=== PATIENT | male | born 1935 | race Caucasian/White ===

== ENCOUNTER 2017-06-29 11:24 | Emergency (ER) | payer MEDICARE ==
[2017-06-29 11:35] VITALS: BP 180/100; PULSE 83; O2SAT 98
[2017-06-29] MEDS ORDERED: Adacel Vial IM ONE ×2 (11:44→12:49)
--- NOTE | 2017-06-29 12:06 | XRAY ---
Indication: Left forehead laceration following fall. Multiple contiguous axial images obtained through the head without contrast. Comparison: January 22, 2011. Minimal left forehead scalp soft tissue swelling. 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 No acute intracranial hemorrhage, abnormal extra-axial fluid collection, or mass effect. Fourth ventricle is midline without hydrocephalus. Bony calvarium intact. Visualized paranasal sinuses and mastoid air cells are clear. Impression: Left forehead soft tissue swelling. 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 CT DI 50.53
--- NOTE | 2017-06-29 12:15 | XRAY ---
Indication: Great toe pain following fall. Comparison: None 3 nonweightbearing views of the right foot demonstrates tiny heel spurs and small talonavicular accessory ossicle. No other bony, articular, or soft tissue abnormalities.
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
== END 2017-06-29 12:54 | disposition home or self-care (01) ==
LOC: ED 11:24
DX: S00.83XA Contusion of other part of head, initial encounter (principal); S90.111A Contusion of right great toe without damage to nail, initial encounter; W06.XXXA Fall from bed, initial encounter; Z79.01 Long term (current) use of anticoagulants; Z79.82 Long term (current) use of aspirin; Z79.899 Other long term (current) drug therapy; S00.81XA Abrasion of other part of head, initial encounter
CPT/HCPCS: 70450; 73630; 90471; 90715; 99284

== ENCOUNTER 2020-01-14 14:27 | Emergency (ER) | payer MEDICARE ==
--- NOTE | 2020-01-14 15:09 | ERPHSYRPT ---
- History of Present Illness Time Seen by Provider: 01/14/20 14:50 Source: patient, family Exam Limitations: no limitations Patient Subjective Stated Complaint: Pt states that according to his blood pressure machine at home that doesn't work right that his blood pressure has been all over the place, states that when he thinks that it is low that he feels a "warmth" go around his head and feels like he is going to pass out but he has not done that yet Triage Nursing Assessment: Pt brought in by his , hypertensive, pulses bounding, denies pain, skin n/w/d, lungs clear, normal heart sounds heard, bowel sounds heard in all 4 quadrants Physician History: Patient comes in due to his blood pressure being high and low over the past month and nonspecific symptoms of dizziness and things appearing to enclosing on him. His highest systolic blood pressure is 185 and its lowest has been 110. Patient was not able to get into his primary care physician in [place], [place], so he came in the emergency room to be evaluated today due to his family member noticing that his blood pressure has been fluctuating. Patient had bilateral carotid endarterectomies, one done in September and one done in October 2019, but has not followed up with his vascular surgeon in the past month when his symptoms have occurred. Timing/Duration: week(s) (four) Severity: moderate Modifying Factors: Improves With: nothing Associated Symptoms: No nausea, No vomiting, No abdominal pain, No shortness of breath, No heartburn, No diaphoresis, No cough, No chills, No chest pain, No fever, No headaches, No loss of appetite, No malaise, No rash, No syncope, No seizure, No weakness Allergies/Adverse Reactions: No Known Drug Allergies Allergy (Verified 01/14/20 14:46) Home Medications: Losartan Potassium 50 mg [Cozaar 50 MG] 25 mg PO BID 10/18/14 [History] Saw [place] 1 tab PO DAILY 10/18/14 [History] Aspirin [Aspir-Low] 81 mg PO DAILY 06/29/17 [History] Atorvastatin Calcium 80 mg PO DAILY 06/29/17 [History] Clopidogrel Bisulfate [Clopidogrel] 75 mg PO DAILY 06/29/17 [History] Isosorbide Mononitrate [Isosorbide Mononitrate ER] 30 mg PO DAILY 06/29/17 [History] Metoprolol Tartrate 12.5 mg PO BID 06/29/17 [History] Magnesium Oxide [Magnesium] 400 mg PO BID 01/14/20 [History] [place]-3 Fatty Acids/Fish Oil [Fish Oil 1,000 mg Capsule] 1,000 mg PO DAILY 01/14/20 [History] Pyridoxine HCl [Vitamin B-6] 100 mg PO DAILY 01/14/20 [History] Hx Tetanus, Diphtheria Vaccination/Date Given: No Hx Influenza Vaccination/Date Given: No Hx Pneumococcal Vaccination/Date Given: No Travel Risk - International Travel Have you traveled outside of the country in past 3 weeks: No - Coronavirus Screening Are you exhibiting any of the following symptoms?: No Close contact with a COVID-19 positive Pt in past 14-21 Days: No - Review of Systems Constitutional: No Fever, No Chills Eyes: No Eye Pain, No Vision Changes Ears, Nose, & Throat: No Nose Congestion, No Mouth Swelling, No Painful Swallowing Respiratory: No Cough, No Dyspnea Cardiac: No Chest Pain, No Edema, No Syncope Abdominal/Gastrointestinal: No Abdominal Pain, No Nausea, No Vomiting, No Diarrhea Genitourinary Symptoms: No Dysuria, No Hematuria, No Flank Pain Musculoskeletal: No Back Pain, No Neck Pain Skin: No Rash, No Skin Lesions Neurological: Dizziness, No Focal Weakness, No Headache, No Sensory Changes Psychological: No Symptoms Endocrine: No Symptoms Hematologic/Lymphatic: No Easy Bleeding, No Easy Bruising All Other Systems: Reviewed and Negative - Past Medical History Pertinent Past Medical History: Yes Cardiac History: High Cholesterol, Hypertension Endocrine Medical History: Diabetes Type II - Past Surgical History Past Surgical History: Yes Gastrointestinal: Hernia Repair Other Surgical History: pt had carotid arteries cleaned out in October 2019 - Social History Smoking Status: Former smoker Exposure to second hand smoke: No Drug Use: none Patient Lives Alone: No - Nursing Vital Signs Nursing Vital Signs: Initial Vital Signs Temperature 98.2 F 01/14/20 14:32 Pulse Rate 77 01/14/20 14:32 Respiratory Rate 11 L 01/14/20 14:32 Blood Pressure 175/81 01/14/20 14:32 O2 Sat by Pulse Oximetry 96 01/14/20 14:32 Pain Scale Pain Intensity 0 - Physical Exam General Appearance: no apparent distress, alert Eye Exam: PERRL/EOMI, eyes nml inspection Ears, Nose, Throat Exam: normal ENT inspection, TMs normal, pharynx normal, moist mucous membranes Neck Exam: normal inspection, non-tender, supple, full range of motion Respiratory Exam: normal breath sounds, lungs clear, No respiratory distress Cardiovascular Exam: regular rate/rhythm, normal heart sounds, normal peripheral pulses Gastrointestinal/Abdomen Exam: soft, normal bowel sounds, No tenderness, No mass Back Exam: normal inspection, No CVA tenderness, No vertebral tenderness, No rash Extremity Exam: normal inspection, normal range of motion, pelvis stable Neurologic Exam: alert, oriented x 3, cooperative, data management engineer II-XII nml as tested, normal mood/affect, nml cerebellar function, nml station & gait, sensation nml, No motor deficits Skin Exam: normal color, warm, dry, No rash Lymphatic Exam: No adenopathy SpO2 Interpretation: normal SpO2: 96 O2 Delivery: Room Air - Course Nursing assessment & vital signs reviewed: Yes EKG Interpreted by Me: RATE (75), Sinus Rhythm, Left [place] Deviation, LAFB, NORMAL INTERVALS, NORMAL QRS, NORMAL ST-T, Other (Left anterior fascicular block; negative previous EKG for comparison) - Radiology Exams Chest X-ray Interpretation: Reviewed by me, Other (Per radiologist interpretation: Portable chest demonstrates interval CABG surgery. Stable bibasilar subsegmental atelectasis/scarring, right hemidiaphragm elevation, and right infrahilar calcified granulomas in comparison to October 18, 2014. Remaining heart and lungs unremarkable. Bony thorax intac) - CT Exams Other CT Interpretation: Other (Per radiologist interpretation of CT angiography of the neck: Bilateral carotid endarterectomy with minimal arteriosclerotic plaquing bilaterally. No critical stenosis/obstruction. Multilevel cervical degenerative changes. Vertebral arteries are bilaterally pain with the left larger in size.) Head CT Interpretation: Negative, Other (Posterior circulation demonstrates dominant distal left vertebral artery, basilar artery normal in course and caliber. Normal CT appearance to posterior cerebral and cerebellar arteries bilaterally. Venous system is unremarkable. No abnormal enhancing intra/extra-axial mass or AV malformation) Ordered Tests: Active Orders 24 hr Category Date Time Status Industrial Chemist STAT Care 01/14/20 15:00 Active Clean Catch Urine Specimen STAT Care 01/14/20 14:59 Active EKG-ER Only STAT Care 01/14/20 14:59 Active IV Insertion STAT Care 01/14/20 14:59 Active Orthostatic Vital Signs STAT Care 01/14/20 14:59 Active CHEST 1 VIEW (PORTABLE) Stat Exams 01/14/20 15:[address] ANGIOGRAPHY NECK [CT] Routine Exams 01/14/20 15:25 Completed CTA HEAD W AND/OR WO CONTRAST [CT] Stat Exams 01/14/20 15:02 Completed CBC W DIFF Stat Lab 01/14/20 14:59 Completed CMP Stat Lab 01/14/20 15:15 Completed ETHYL ALCOHOL Stat Lab 01/14/20 15:15 Completed Lactic Acid Stat Lab 01/14/20 15:14 Completed MAGNESIUM Stat Lab 01/14/20 15:15 Completed NT PRO BNP Stat Lab 01/14/20 15:15 Completed TROPONIN Q3H Lab 01/14/20 15:15 Completed TROPONIN Q3H Lab 01/14/20 18:00 Ordered TROPONIN Q3H Lab 01/14/20 21:00 Ordered TROPONIN Q3H Lab 01/15/20 00:00 Ordered TROPONIN Q3H Lab 01/15/20 03:00 Ordered UA W/RFX UR CULTURE Stat Lab 01/14/20 14:59 Completed Urine Triage Profile Stat Lab 01/14/20 14:59 Completed Medication Summary Discontinued Medications Generic Name Dose Route Start Last Admin Trade Name Freq PRN Reason Stop Dose Admin Sodium Chloride 1,000 mls @ 999 mls/hr 01/14/20 14:59 01/14/20 16:25 Sodium Chloride 0.9% 1000 Ml IV 01/14/20 15:59 Infused .Q1H1M STA Infusion Sodium Chloride Confirm 01/14/20 15:14 Sodium Chloride 0.9% 1000 Ml Administered 01/14/20 15:15 Dose 1,000 mls @ ud .ROUTE .STK-MED ONE Labetalol HCl 20 mg 01/14/20 17:28 01/14/20 17:34 Trandate 20 Mg/5 Ml Syringe IV 01/14/20 17:29 20 mg STAT ONE Administration Labetalol HCl Confirm 01/14/20 17:31 Trandate 100 Mg/20 Ml Mdv For Drip Administered 01/14/20 17:32 Dose 100 mg IV .STK-MED ONE Lab/Rad Data: Laboratory Result Diagrams 01/14/20 14:59 01/14/20 15:15 Laboratory Results 01/14/20 01/14/20 01/14/20 Range/Units 15:15 15:15 15:14 WBC (4.0-10.5) K/mm3 RBC (4.1-5.6) M/mm3 Hgb (12.5-18.0) gm/dl Hct (42-50) % MCV (78-100) fl MCH (26-32) pg MCHC (32-36) g/dl RDW (11.5-14.0) % Plt Count (150-450) K/mm3 MPV (7.5-11.0) fl Gran % (36.0-66.0) % Eos # (Auto) (0-0.5) Absolute Lymphs (auto) (1.0-4.6) Absolute Monos (auto) (0.0-1.3) Lymphocytes % (24.0-44.0) % Monocytes % (0.0-12.0) % Eosinophils % (0.00-5.0) % Basophils % (0.0-0.4) % Absolute Granulocytes (1.4-6.9) Basophils # (0-0.4) Sodium 133 L (137-145) mmol/L Potassium 5.1 (3.5-5.1) mmol/L Chloride 100 (98-107) mmol/L Carbon Dioxide 25 (22-30) mmol/L Anion Gap 12.3 (5-15) MEQ/L BUN 20 (9-20) mg/dL Creatinine 1.12 (0.66-1.25) mg/dL Estimated GFR > 60.0 ML/MIN Glucose 193 H (74-106) mg/dL Lactic Acid 1.4 (0.4-2.0) Calcium 9.1 (8.4-10.2) mg/dL Magnesium 2.4 H (1.6-2.3) mg/dL Total Bilirubin 1.20 (0.2-1.3) mg/dL AST 48 (17-59) U/L ALT 33 (0-50) U/L Alkaline Phosphatase 78 (38-126) U/L Troponin I < 0.012 (0.000-0.034) ng/mL NT-Pro-B Natriuret Pep 336 (0-1800) pg/mL Serum Total Protein 7.0 (6.3-8.2) g/dL Albumin 4.2 (3.5-5.0) g/dL Urine Color (YELLOW) Urine Appearance (CLEAR) Urine pH (5-6) Ur Specific [place] (1.005-1.025) Urine Protein (Negative) Urine Ketones (NEGATIVE) Urine Blood (0-5) Pineda/ul Urine Nitrite (NEGATIVE) Urine Bilirubin (NEGATIVE) Urine Urobilinogen (0-1) mg/dL Ur Leukocyte Esterase (NEGATIVE) Urine WBC (Auto) (0-5) /HPF Urine RBC (Auto) (0-2) /HPF U Epithel Cells (Auto) (FEW) /HPF Urine Bacteria (Auto) (NEGATIVE) /HPF Urine Culture Reflexed (NO) Urine Glucose (NEGATIVE) mg/dL Urine Opiates Level (NEGATIVE) Ur Methadone (NEGATIVE) Urine Barbiturates (NEGATIVE) Ur Phencyclidine (PCP) (NEGATIVE) Urine Amphetamine (NEGATIVE) U Benzodiazepine Level (NEGATIVE) Urine Cocaine (NEGATIVE) Urine Marijuana (THC) (NEGATIVE) Ethyl Alcohol < 10 (0-10) mg/dL 01/14/20 01/14/20 01/14/20 Range/Units 14:59 14:59 14:59 WBC 8.0 (4.0-10.5) K/mm3 RBC 4.33 (4.1-5.6) M/mm3 Hgb 13.1 (12.5-18.0) gm/dl Hct 40.7 L (42-50) % MCV 94.0 (78-100) fl MCH 30.3 (26-32) pg MCHC 32.2 (32-36) g/dl RDW 14.9 H (11.5-14.0) % Plt Count 168 (150-450) K/mm3 MPV 11.6 H (7.5-11.0) fl Gran % 71.3 H (36.0-66.0) % Eos # (Auto) 0.13 (0-0.5) Absolute Lymphs (auto) 1.60 (1.0-4.6) Absolute Monos (auto) 0.56 (0.0-1.3) Lymphocytes % 19.9 L (24.0-44.0) % Monocytes % 7.0 (0.0-12.0) % Eosinophils % 1.6 (0.00-5.0) % Basophils % 0.2 (0.0-0.4) % Absolute Granulocytes 5.72 (1.4-6.9) Basophils # 0.02 (0-0.4) Sodium (137-145) mmol/L Potassium (3.5-5.1) mmol/L Chloride (98-107) mmol/L Carbon Dioxide (22-30) mmol/L Anion Gap (5-15) MEQ/L BUN (9-20) mg/dL Creatinine (0.66-1.25) mg/dL Estimated GFR ML/MIN Glucose (74-106) mg/dL Lactic Acid (0.4-2.0) Calcium (8.4-10.2) mg/dL Magnesium (1.6-2.3) mg/dL Total Bilirubin (0.2-1.3) mg/dL AST (17-59) U/L ALT (0-50) U/L Alkaline Phosphatase (38-126) U/L Troponin I (0.000-0.034) ng/mL NT-Pro-B Natriuret Pep (0-1800) pg/mL Serum Total Protein (6.3-8.2) g/dL Albumin (3.5-5.0) g/dL Urine Color YELLOW (YELLOW) Urine Appearance CLEAR (CLEAR) Urine pH 7.0 (5-6) Ur Specific [place] 1.012 (1.005-1.025) Urine Protein NEGATIVE (Negative) Urine Ketones NEGATIVE (NEGATIVE) Urine Blood NEGATIVE (0-5) Pineda/ul Urine Nitrite NEGATIVE (NEGATIVE) Urine Bilirubin NEGATIVE (NEGATIVE) Urine Urobilinogen NEGATIVE (0-1) mg/dL Ur Leukocyte Esterase NEGATIVE (NEGATIVE) Urine WBC (Auto) NONE (0-5) /HPF Urine RBC (Auto) NONE (0-2) /HPF U Epithel Cells (Auto) NONE (FEW) /HPF Urine Bacteria (Auto) NONE SEEN (NEGATIVE) /HPF Urine Culture Reflexed NO (NO) Urine Glucose 150 (NEGATIVE) mg/dL Urine Opiates Level NEGATIVE (NEGATIVE) Ur Methadone NEGATIVE (NEGATIVE) Urine Barbiturates NEGATIVE (NEGATIVE) Ur Phencyclidine (PCP) NEGATIVE (NEGATIVE) Urine Amphetamine NEGATIVE (NEGATIVE) U Benzodiazepine Level NEGATIVE (NEGATIVE) Urine Cocaine NEGATIVE (NEGATIVE) Urine Marijuana (THC) POSITIVE (NEGATIVE) Ethyl Alcohol (0-10) mg/dL - Progress Progress: unchanged Progress Note: 01/14/20 17:29 Patient is doing well overall and has maintained sinus rhythm on the enrollment services dean throughout his time in the emergency department; patient states he does smoke marijuana but quit 5 days ago, explaining his THC in his urine toxicology screen; patient's systolic blood pressure is 208, so labetalol 20 mg IV x1 will be given and rechecked his blood pressure 01/14/20 17:51 Patient feeling well with blood pressure lowering; patient has no focal neurologic deficits and no signs of any abnormal labs or imaging studies that requires inpatient admission at this time 01/14/20 18:05 Patient had a 1 month duration of intermittent elevated blood pressures with low blood pressures as well as nonspecific symptoms of dizziness who came in the emergency room be evaluated. Patient was found to have no focal neurologic deficits and no appreciable abnormalities on initial EKG, chest x-ray and lab work other than a slightly elevated magnesium and urine toxicology screen showing a positive THC which patient admits to smoking marijuana. Patient had a negative CTA of his head and neck for any signs of constriction of his carotid endarterectomies or vertebral arteries or any other venous abnormalities in his brain that could be explaining his symptoms. Patient was hypertensive in the emergency room was treated and recovered very well with 1 dose of labetalol. With patient not having any abnormal signs of heart failure, cardiac damage, renal failure, hepatic failure, patient will be discharged home with follow-up with his primary care provider to discuss medication modification for his hypertension and if the patient needs any other further testing such as MRI, stress test, 2D echo or anything else that can be done as an outpatient since his symptoms have been going on for over 1 month. I reviewed the patient and his family in detail what signs and symptoms to return back to the emergency department as patient does not require any inpatient mission for any further evaluation or monitoring his blood pressure improved with the IV labetalol 01/14/20 18:07 Counseled pt/family regarding: lab results, diagnosis, need for follow-up, rad results - Departure Departure Disposition: Home Clinical Impression: Hypertensive urgency, Dizziness of unknown etiology, Marijuana smoker, episodic, Hypermagnesemia Condition: Good Critical Care Time: No Referrals: FLACO STOVER [Primary Care Provider] - 01/15/20 Instructions: Marijuana, Dizziness, Nonvertigo, (DC), Malignant Hypertension (DC) Additional Instructions: Other than your blood pressure elevation, your CT of your head and neck with circulation studies did not show any abnormalities. Your lab work looks very good also. Return immediately back to emergency room if any worsening headache, dizziness, chest pressure, shortness of breath, fever, cough, diarrhea, abdomi nal pain, back pain or any other concerning signs or symptoms that were not present at today's emergency room visit for immediate reevaluation in the emergency department
[2020-01-14] MEDS ORDERED: Sodium Chloride 0.9% 1000 ML 1,000 ML ONE (15:14)
[2020-01-14 15:15] LABS: Absolute Neutrophil Ct (ANC) 5.72 (1.4-6.9); BASOPHIL % 0.2 % (0.0-0.4); Basophil (Absolute #) 0.02 (0-0.4); Eosinophil % 1.6 % (0.00-5.0); Eosinophil (Absolute #) 0.13 (0-0.5); Hematocrit 40.7 % (42-50); Hemoglobin 13.1 gm/dl (12.5-18.0); Lymphocytes % 19.9 % (24.0-44.0); Mean Corpuscular Hemoglobin 30.3 pg (26-32); Mean Corpuscular Hgb Concent. 32.2 g/dl (32-36); Mean Platelet Volume 11.6 fl (7.5-11.0); Monocyte (Absolute #) 0.56 (0.0-1.3); Neutrophil % 71.3 % (36.0-66.0); Platelet Count 168 K/mm3 (150-450); Red Blood Count 4.33 M/mm3 (4.1-5.6); Red Cell Distribution Width 14.9 % (11.5-14.0)
[2020-01-14] MEDS: Sodium Chloride 0.9% 1000 ML 1,000 ML IV STA (15:15)
--- NOTE | 2020-01-14 15:29 | XRAY ---
Indication: Dizziness. Hypertension. Comparison: October 18, 2014. Portable chest demonstrates interval CABG surgery. Stable bibasilar subsegmental atelectasis/scarring, right hemidiaphragm elevation, and right infrahilar calcified granulomas. Remaining heart and lungs unremarkable. Bony thorax intact again with mild degenerative changes. Impression: Continued nonacute chest with chronic features.
[2020-01-14 15:43] LABS: ALBUMIN 4.2 g/dL (3.5-5.0); ALKALINE PHOSPHATASE 78 U/L (38-126); ANION GAP 12.3 MEQ/L (5-15); BLOOD UREA NITROGEN 20 mg/dL (9-20); CHLORIDE 100 mmol/L (98-107); Calcium 9.1 mg/dL (8.4-10.2); Carbon Dioxide 25 mmol/L (22-30); Creatinine 1 1.12 mg/dL (0.66-1.25); EST GLOMERULAR FILTRATION RATE > 60.0 ML/MIN; Glucose 193 mg/dL (74-106); MAGNESIUM 2.4 mg/dL (1.6-2.3); NT PRO BNP 336 pg/mL (0-1800); Potassium 5.1 mmol/L (3.5-5.1); SGOT/AST 48 U/L (17-59); SGPT/ALT 33 U/L (0-50); SODIUM 133 mmol/L (137-145)
[2020-01-14 15:47] LABS: ETHYL ALCOHOL < 10 mg/dL (0-10)
[2020-01-14 16:42] LABS: Appearance CLEAR (CLEAR); Bilirubin NEGATIVE (NEGATIVE); Blood NEGATIVE Ery/ul (0-5); Glucose 150 mg/dL (NEGATIVE); Ketones NEGATIVE (NEGATIVE); Leukocyte Esterase NEGATIVE (NEGATIVE); Nitrite NEGATIVE (NEGATIVE); Protein,Urine Dip NEGATIVE (Negative); Specific Gravity 1.012 (1.005-1.025); Urobilinogen NEGATIVE mg/dL (0-1)
[2020-01-14 16:53] LABS: Bacteria NONE SEEN /HPF (NEGATIVE)
[2020-01-14 17:01] LABS: Amphetamine,Urine NEGATIVE (NEGATIVE); Barbiturate,Urine NEGATIVE (NEGATIVE); Benzodiazepine,Urine NEGATIVE (NEGATIVE); Cocaine,Urine NEGATIVE (NEGATIVE); Methadone,Urine NEGATIVE (NEGATIVE); Opiate,Urine NEGATIVE (NEGATIVE); PCP,Urine NEGATIVE (NEGATIVE); THC,Urine POSITIVE (NEGATIVE)
--- NOTE | 2020-01-14 17:20 | XRAY ---
Indication: Near syncope. High blood pressure. Conventional contrast enhanced CTA head performed using 80 cc Isovue 370 contrast. Two-dimensional sagittal and coronal reformatted images obtained. Comparison: None CTA neck reported separately. Parasellar distal internal carotid arteries demonstrates mild calcified plaquing bilaterally without critical stenosis/obstruction. Normal carotid terminus with normal branching M1 segments bilaterally. Normal branching A1 segments with the right attenuated in size. More distal anterior cerebral, middle cerebral, anterior communicating, and posterior communicating arteries are normal in CTA appearance. Posterior circulation demonstrates dominant distal left vertebral artery. Basilar artery normal in course and caliber. Normal CTA appearance to the posterior cerebral and superior cerebellar arteries bilaterally. Venous system is unremarkable. No abnormal enhancing intra/extra-axial mass or AV malformation. Impression: Mild bilateral internal carotid arteriosclerotic calcifications without critical stenosis/obstruction. Remaining CTA head is negative.
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
[2020-01-14] MEDS ORDERED: TRANDATE 100 MG/20 ML MDV FOR DRIP IV ONE (17:31)
[2020-01-14] MEDS: TRANDATE 20 MG/5 ML SYRINGE IV ONE (17:34)
[2020-01-14 17:39] VITALS: BP 168/72; PULSE 65
[2020-01-14 17:55] VITALS: O2SAT 96
== END 2020-01-14 18:06 | disposition home or self-care (01) ==
LOC: ED 14:27
DX: I16.0 Hypertensive urgency (principal); R42 Dizziness and giddiness; F12.90 Cannabis use, unspecified, uncomplicated; E83.41 Hypermagnesemia; Z79.899 Other long term (current) drug therapy; I10 Essential (primary) hypertension; E11.9 Type 2 diabetes mellitus without complications; E78.00 Pure hypercholesterolemia, unspecified; Z72.0 Tobacco use
CPT/HCPCS: 36000; 36415; 70496; 70498; 71045; 80053; 80307; 81001; 83605; 83735; 83880; 84484; 85025; 93005; 93041; 96360; 96374; 99284; G0480

== ENCOUNTER 2023-04-06 11:49 | Emergency (ER) | payer MEDICARE, SELFPAY ==
[2023-04-06 12:36] VITALS: BP 125/54; RESP 16; TEMP 97.8; O2SAT 94
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
[2023-04-06 13:26] VITALS: PULSE 60
== END 2023-04-06 13:26 | disposition home or self-care (01) ==
LOC: ED 11:49
DX: S80.12XA Contusion of left lower leg, initial encounter (principal); S80.11XA Contusion of right lower leg, initial encounter; V47.5XXA Car driver injured in collision with fixed or stationary object in traffic accident, initial encounter; R07.9 Chest pain, unspecified; I10 Essential (primary) hypertension; E11.42 Type 2 diabetes mellitus with diabetic polyneuropathy; Z79.02 Long term (current) use of antithrombotics/antiplatelets; Z79.899 Other long term (current) drug therapy
CPT/HCPCS: 71046; 73590; 99282